=== PATIENT | male | born 1935 | race Caucasian/White ===

== ENCOUNTER 2020-09-10 19:18 | Inpatient (IN) | payer MEDICARE, BC ==
[2020-09-10] MEDS ORDERED: Furosemide 40 MG/4 ML VIAL ONE (19:49)
[2020-09-10] MEDS ORDERED: Nitroglycerin 2% Ointment 1 INCH/1 GM Packet ONE (19:49)
[2020-09-10 19:57] LABS: #Monocytes 0.4 10x3/uL (0.0-1.1); %Basophils 0.5 % (0.0-2.0); %Eosinophils 0.2 % (0.0-6.0); %Monocytes 6.7 % (0.0-10.0); %Neutrophils 81.1 % (40.0-75.0); Hemoglobin 7.9 g/dL (13.5-17.5); Mean Corpuscular HGB CONC 28.1 g/dL (32.0-36.0); Mean Corpuscular Hemoglobin 23.3 pg (27.0-33.0); Mean Corpuscular Volume 82.9 fl (81.2-95.1); Mean Platelet Volume 9.8 fl (7.4-10.4); Platelet Count 289 10x3/uL (150-450); RBC Distribution Width 19.4 % (11.5-14.5); Red Blood Cell (RBC) Count 3.39 10x6/uL (4.32-5.72); White Blood Cell (WBC) Count 6.1 10x3/uL (3.5-10.5)
[2020-09-10 20:10] LABS: ALT (SGPT) 16 U/L (8-55); AST (SGOT) 10 U/L (5-34); Albumin 3.9 g/dL (3.4-4.8); Alkaline Phosphatase 102 U/L (40-110); Anion Gap 19 mmol/L (10-20); BUN (Urea Nitrogen) 17 mg/dL (8.4-25.7); Bilirubin, Total 0.7 mg/dL (0.2-1.2); Calc. Creatinine Clearance 0 mL/min (70-130); Calcium 8.7 mg/dL (7.8-10.44); Carbon Dioxide 24 mmol/L (23-31); Chloride 95 mmol/L (98-107); Globulin 2.3 g/dL (2.4-3.5); Glucose 121 mg/dL (83-110); Potassium 4.6 mmol/L (3.5-5.1); Protein, Total 6.2 g/dL (5.8-8.1); Sodium 133 mmol/L (136-145)
[2020-09-10 20:15] LABS: Anisocytosis MODERATE=16-30 cells (100X) (0-5/hpf); Hypochromia SLIGHT = 6-15 cells (100X) (0-5/hpf); Large Platelets SLIGHT; Platelet Morphology Comment Appears Adequate; Poikilocytosis SLIGHT = 6-15 cells (100X) (0-5/hpf)
[2020-09-10 20:32] LABS: CKMB 4.9 ng/mL (0-6.6)
[2020-09-10 21:55] LABS: SARS-CoV-2 NAA Rapid Test Not Detected (NotDetected)
[2020-09-11 05:11] LABS: #Neutrophils 3.4 10x3/uL (1.5-8.4); %Lymphocytes 2.9 % (18.0-47.0); %Monocytes 0.3 % (0.0-10.0); %Neutrophils 95.9 % (40.0-75.0); Hemoglobin 7.4 g/dL (13.5-17.5); Mean Corpuscular HGB CONC 27.8 g/dL (32.0-36.0); Mean Corpuscular Hemoglobin 22.9 pg (27.0-33.0); Mean Corpuscular Volume 82.4 fl (81.2-95.1); Mean Platelet Volume 9.5 fl (7.4-10.4); Platelet Count 249 10x3/uL (150-450); RBC Distribution Width 19.3 % (11.5-14.5); Red Blood Cell (RBC) Count 3.23 10x6/uL (4.32-5.72); White Blood Cell (WBC) Count 3.5 10x3/uL (3.5-10.5)
[2020-09-11] MEDS: Furosemide 40 MG/4 ML VIAL SLOW IVP SCH ×2 (05:31→15:25)
[2020-09-11] MEDS: methylPREDNISolone Sod Succ 40 MG VIAL IVP SCH ×2 (05:31→15:25)
[2020-09-11 05:35] LABS: Anion Gap 15 mmol/L (10-20); BUN (Urea Nitrogen) 16 mg/dL (8.4-25.7); Calc. Creatinine Clearance 0 mL/min (70-130); Calcium 8.9 mg/dL (7.8-10.44); Carbon Dioxide 31 mmol/L (23-31); Chloride 95 mmol/L (98-107); Glucose 141 mg/dL (83-110); Magnesium 2.1 mg/dL (1.6-2.6); Potassium 4.4 mmol/L (3.5-5.1); Sodium 137 mmol/L (136-145); Troponin I 0.054 ng/mL (< 0.028)
[2020-09-11] MEDS: Lisinopril 2.5 MG TAB PO SCH (08:46)
[2020-09-11] MEDS: Aspirin Chewable 81 MG TAB PO SCH (08:46)
[2020-09-11] MEDS: Arformoterol 15 MCG/2 ML NEB NEB SCH ×2 (11:19→19:25)
[2020-09-11] MEDS: Enoxaparin Sodium 40 MG/0.4 ML SYRINGE SC SCH (21:03)
[2020-09-12] MEDS: methylPREDNISolone Sod Succ 40 MG VIAL IVP SCH ×2 (02:10→13:28)
[2020-09-12 05:46] LABS: #Monocytes 0.1 10x3/uL (0.0-1.1); %Lymphocytes 1.3 % (18.0-47.0); %Monocytes 2.1 % (0.0-10.0); Hemoglobin 7.3 g/dL (13.5-17.5); Mean Corpuscular HGB CONC 28.4 g/dL (32.0-36.0); Mean Corpuscular Hemoglobin 23.2 pg (27.0-33.0); Mean Corpuscular Volume 81.6 fl (81.2-95.1); Mean Platelet Volume 9.4 fl (7.4-10.4); Platelet Count 262 10x3/uL (150-450); RBC Distribution Width 19.4 % (11.5-14.5); Red Blood Cell (RBC) Count 3.15 10x6/uL (4.32-5.72); White Blood Cell (WBC) Count 5.2 10x3/uL (3.5-10.5)
[2020-09-12 06:03] LABS: Anion Gap 14 mmol/L (10-20); BUN (Urea Nitrogen) 25 mg/dL (8.4-25.7); Calc. Creatinine Clearance 0 mL/min (70-130); Calcium 8.8 mg/dL (7.8-10.44); Carbon Dioxide 33 mmol/L (23-31); Chloride 91 mmol/L (98-107); Glucose 154 mg/dL (83-110); Potassium 4.3 mmol/L (3.5-5.1); Sodium 134 mmol/L (136-145)
[2020-09-12] MEDS: Furosemide 40 MG/4 ML VIAL SLOW IVP SCH ×2 (06:28→13:28)
[2020-09-12] MEDS: Arformoterol 15 MCG/2 ML NEB NEB SCH ×2 (08:00→19:45)
[2020-09-12] MEDS: Lisinopril 2.5 MG TAB PO SCH (08:25)
[2020-09-12] MEDS: Aspirin Chewable 81 MG TAB PO SCH (08:25)
[2020-09-12 12:22] LABS: Iron 17 ug/dL (65-175); Iron Binding Capacity, Total 386 mcg/dL (261-462)
[2020-09-12] MEDS ORDERED: Albuterol Sulfate 2.5 mg/3 ml Neb EZPAP PRN (16:50)
[2020-09-12] MEDS: Ferrous Sulfate 325 MG TAB PO SCH (17:21)
[2020-09-12] MEDS: Enoxaparin Sodium 40 MG/0.4 ML SYRINGE SC SCH (20:15)
[2020-09-13] MEDS: methylPREDNISolone Sod Succ 40 MG VIAL IVP SCH ×2 (02:15→14:32)
[2020-09-13 05:37] LABS: Hemoglobin 7.6 g/dL (13.5-17.5); Mean Corpuscular HGB CONC 28.3 g/dL (32.0-36.0); Mean Corpuscular Hemoglobin 23.2 pg (27.0-33.0); Mean Corpuscular Volume 82.3 fl (81.2-95.1); Mean Platelet Volume 9.3 fl (7.4-10.4); Platelet Count 268 10x3/uL (150-450); RBC Distribution Width 19.4 % (11.5-14.5); Red Blood Cell (RBC) Count 3.27 10x6/uL (4.32-5.72); White Blood Cell (WBC) Count 6.6 10x3/uL (3.5-10.5)
[2020-09-13] MEDS: Furosemide 40 MG/4 ML VIAL SLOW IVP SCH ×2 (05:42→14:32)
[2020-09-13 05:57] LABS: Anion Gap 13 mmol/L (10-20); BUN (Urea Nitrogen) 24 mg/dL (8.4-25.7); Calc. Creatinine Clearance 115 mL/min (70-130); Calcium 8.9 mg/dL (7.8-10.44); Carbon Dioxide 35 mmol/L (23-31); Chloride 91 mmol/L (98-107); Glucose 126 mg/dL (83-110); Potassium 4.1 mmol/L (3.5-5.1); Sodium 135 mmol/L (136-145)
[2020-09-13] MEDS: Arformoterol 15 MCG/2 ML NEB NEB SCH ×2 (07:03→19:40)
[2020-09-13] MEDS: Lisinopril 2.5 MG TAB PO SCH (09:02)
[2020-09-13] MEDS: Aspirin Chewable 81 MG TAB PO SCH (09:02)
[2020-09-13] MEDS: Ferrous Sulfate 325 MG TAB PO SCH ×2 (09:02→17:09)
[2020-09-13] MEDS: Enoxaparin Sodium 40 MG/0.4 ML SYRINGE SC SCH (21:23)
[2020-09-14] MEDS: methylPREDNISolone Sod Succ 40 MG VIAL IVP SCH ×2 (01:10→15:24)
[2020-09-14] MEDS: Furosemide 40 MG/4 ML VIAL SLOW IVP SCH ×2 (06:02→15:23)
[2020-09-14 06:15] LABS: Carbon Dioxide 36 mmol/L (23-31); Chloride 91 mmol/L (98-107); Potassium 4.1 mmol/L (3.5-5.1); Sodium 135 mmol/L (136-145)
[2020-09-14 06:16] LABS: Anion Gap 12 mmol/L (10-20); BUN (Urea Nitrogen) 26 mg/dL (8.4-25.7); Calc. Creatinine Clearance 0 mL/min (70-130); Calcium 8.7 mg/dL (7.8-10.44); Glucose 140 mg/dL (83-110)
[2020-09-14 07:29] VITALS: BMI 34.5
[2020-09-14 07:38] LABS: #Monocytes 0.3 10x3/uL (0.0-1.1); #Neutrophils 4.5 10x3/uL (1.5-8.4); %Lymphocytes 3.6 % (18.0-47.0); %Monocytes 6.7 % (0.0-10.0); %Neutrophils 89.1 % (40.0-75.0); Mean Corpuscular HGB CONC 28.5 g/dL (32.0-36.0); Mean Corpuscular Volume 80.7 fl (81.2-95.1); Mean Platelet Volume 9.3 fl (7.4-10.4); Platelet Count 260 10x3/uL (150-450); RBC Distribution Width 19.4 % (11.5-14.5); Red Blood Cell (RBC) Count 3.48 10x6/uL (4.32-5.72)
[2020-09-14] MEDS: Ferrous Sulfate 325 MG TAB PO SCH ×2 (08:23→15:24)
[2020-09-14] MEDS: Lisinopril 2.5 MG TAB PO SCH (08:23)
[2020-09-14] MEDS: Aspirin Chewable 81 MG TAB PO SCH (08:23)
[2020-09-14] MEDS: Arformoterol 15 MCG/2 ML NEB NEB SCH ×2 (08:50→22:00)
[2020-09-14] MEDS: Enoxaparin Sodium 40 MG/0.4 ML SYRINGE SC SCH (20:33)
[2020-09-15] MEDS: methylPREDNISolone Sod Succ 40 MG VIAL IVP SCH (02:53)
[2020-09-15 06:28] LABS: Anion Gap 15 mmol/L (10-20); BUN (Urea Nitrogen) 24 mg/dL (8.4-25.7); Calc. Creatinine Clearance 120 mL/min (70-130); Calcium 8.6 mg/dL (7.8-10.44); Carbon Dioxide 32 mmol/L (23-31); Chloride 91 mmol/L (98-107); Glucose 119 mg/dL (83-110); Potassium 4.4 mmol/L (3.5-5.1); Sodium 134 mmol/L (136-145)
[2020-09-15] MEDS: Furosemide 40 MG/4 ML VIAL SLOW IVP SCH (06:31)
[2020-09-15] MEDS: Arformoterol 15 MCG/2 ML NEB NEB SCH (07:39)
[2020-09-15] MEDS: Aspirin Chewable 81 MG TAB PO SCH (08:53)
[2020-09-15] MEDS: Lisinopril 2.5 MG TAB PO SCH (08:53)
[2020-09-15] MEDS: Ferrous Sulfate 325 MG TAB PO SCH (08:53)
[2020-09-15 12:16] VITALS: BP 138/77; TEMP 97.4
== END 2020-09-15 16:09 | disposition hospice, home (50) | DRG 291 ==
LOC: CSHERS 19:18 → CSHTELE 22:59 → INTOOBSV 22:59 → OBSVTOIN 09-12 14:58
PROVIDERS: ADMIT Family Medicine; ATTEND Internal Medicine
DX: I11.0 Hypertensive heart disease with heart failure (principal); J96.21 Acute and chronic respiratory failure with hypoxia; J44.1 Chronic obstructive pulmonary disease with (acute) exacerbation; J90 Pleural effusion, not elsewhere classified; I50.33 Acute on chronic diastolic (congestive) heart failure; I48.0 Paroxysmal atrial fibrillation; L89.159 Pressure ulcer of sacral region, unspecified stage; I73.9 Peripheral vascular disease, unspecified; Z79.899 Other long term (current) drug therapy; F03.90 Unspecified dementia, unspecified severity, without behavioral disturbance, psychotic disturbance, mood disturbance, and anxiety; I25.10 Atherosclerotic heart disease of native coronary artery without angina pectoris; I35.0 Nonrheumatic aortic (valve) stenosis; D63.8 Anemia in other chronic diseases classified elsewhere; N40.0 Benign prostatic hyperplasia without lower urinary tract symptoms; Z66 Do not resuscitate; D50.9 Iron deficiency anemia, unspecified; Z20.822 Contact with and (suspected) exposure to COVID-19; K29.70 Gastritis, unspecified, without bleeding; E78.5 Hyperlipidemia, unspecified; Z88.7 Allergy status to serum and vaccine
CPT/HCPCS: 0240U; 0439T; 36415; 71045; 80048; 80053; 82553; 82728; 83540; 83550; 83735; 83880; 84443; 84484; 85025; 85027; 93005; 93010; 93306; 94640; 94760; 96372; 96374; 96375; 96376; G0378; J1650; J1940; J2920; J7611; J7620